=== PATIENT | male | born 1935 | race Caucasian/White ===

== ENCOUNTER 2017-08-25 18:59 | Inpatient (IN) | payer OTHER, BC ==
[2017-08-25 19:16] VITALS: BMI 24.3
--- NOTE | 2017-08-25 19:20 | PDOC ---
Attending Attestation - HPI HPI: 08/25/17 20:29 82 year old male, with significant PMH of Diverticulosis, HTN, HLD, GERD, and Gout, who was sent into the emergency room by Dr. Beaver complaining of rectal bleeding x4 days. The patient states that he notices bright red blood on the top of his brown colored stool and on the toilet paper. Denies dark, tarry stool. He states that he has had a diverticular bleed in the past that required a 2 pint blood transfusion. Denies abdominal pain. Denies fever, chills, nausea , vomiting. - Physicial Exam PE: 08/25/17 20:29 Constitutional: Awake, alert, oriented. No acute distress. Head: Normocephalic. Atraumatic Eyes: PERRL. EOMI. Conjunctivae are not pale. ENT: Mucous membranes are moist and intact. Posterior pharynx without exudates or erythema. Uvula midline. Neck: Supple. Full ROM. No lymphadenopathy. Cardiovascular: Regular rate. Regular rhythm. S1, S2 regular. Distal pulses are 2+ and symmetric. Pulmonary/Chest: No evidence of respiratory distress. Clear to auscultation bilaterally No wheezing, rales or rhonchi. Abdominal: Soft and non-distended. There is no tenderness. No rebound, guarding or rigidity. No organomegaly. No palpable masses. Good bowel sounds. Back: No CVA tenderness. Musculoskeletal: No edema. No cyanosis. No clubbing. Full range of motion in all extremities. Nocalf tenderness. Radial/pedal pulses are intact and 2+ bilaterally Skin: Skin is warm and dry. No petechiae. No purpura. Neurological: Alert and oriented to person, place, and time. Cranial nerves II -XII are grossly intact. Normal speech. Strength is grossly symmetric. No sensory deficits. Psychiatric: Good eye contact. Normal interaction, affect and behavior. - Medical Decision Making 08/25/17 21:55 Dr. Beaver was paged at 9:55pm. <Carolina Brooks - Last Filed: 08/25/17 21:54> - Resident Resident Name: Víctor Devlin - ED Attending Attestation I have performed the following: I have examined & evaluated the patient, The case was reviewed & discussed with the resident, I agree w/resident's findings & plan, Exceptions are as noted - Medical Decision Making 08/25/17 19:20 I, Dr. Beckie Olivera, DO, attest that this document has been prepared under my direction and personally reviewed by me in its entirety. I further attest, that it accurately reflects all work, treatment, procedures and medical decision -making performed by me. 08/25/17 19:48 a/p: 82yo male with 3 day hx of BRBPR -hx of diverticulosis on prior colonoscopy -hx of UGIB -no blood thinners -most likely diverticular bleed -no abd pain -labs, type and screen (hx of requiring blood transfusion in the past), ekg, cxr -pt will be admitted by Dr. Mueller (had rectal exam by Dr. Mueller earlier today) 08/25/17 20:28 sinus tach at 111, 1st degree av block, low voltage EKG, no acute st/t wave findings, 08/25/17 21:53 hgb 11. call placed to Dr. Beaver. Pt will need repeat h/h and monitoring. 08/25/17 21:[address] Beaver - requests consult to Dr. Richter and admission under Dr. Mueller. Discussed labs. Pt stable at this time. 08/25/17 21:57 <Beckie Olivera - Last Filed: 08/25/17 21:57> Discharge Disposition <Carolina Brooks - Last Filed: 08/25/17 21:54> - Discharge Dispostion Admit: Yes <Beckie Olivera - Last Filed: 08/25/17 21:57> - Diagnosis GIB (gastrointestinal bleeding) - Discharge Dispostion Condition at time of disposition: Fair - Referrals Referrals: Mazin Beaver MD [Primary Care Provider] - - Patient Instructions - Post Discharge Activity
--- NOTE | 2017-08-25 19:38 | PDOC ---
History of Present Illness - General Chief Complaint: Bleeding from Anus Stated Complaint: RECTAL BLEEDING Time Seen by Provider: 08/25/17 19:15 - History of Present Illness Initial Comments: 08/25/17 20:03 The patient is an 82 year old male with a history of HTN, HLD, GERD, Gout, Diverticulosis who presents for evaluation from his PCP for rectal bleeding. The patient reports a 4-5 day history of bright red blood per rectum prompting him to present to his PCP. The patient reports that he has had diverticular bleeds in the past once requiring transfusion. His primary Dr. Beaver sent him to the ER for admission given his PMH and a positive stool guiac in the office. The patient denies any abdominal pain or dark tarry stools and only noted bright red blood on the outside of his stools and with wiping. He denies fevers , chills, SOB, chest pain, or changes with urination. He denies any pain with defecation as well. Past History - Past Medical History Allergies/Adverse Reactions: Allergies Allergy/AdvReac Type Severity Reaction Status Date / Time shellfish derived Allergy Verified 08/25/17 19:18 Home Medications: Ambulatory Orders Allopurinol 300 mg PO DAILY 08/26/17 Amlodipine Besylate 5 mg PO DAILY 08/26/17 Azelastine HCl 137 mcg NS DAILY 08/26/17 Dicyclomine HCl 10 mg PO DAILY 08/26/17 Loratadine 10 mg PO DAILY 08/26/17 Losartan Potassium 50 mg PO DAILY 08/26/17 Omeprazole 20 mg PO DAILY 08/26/17 COPD: No GI Disorders: Yes (GERD) HTN: Yes Other medical history: GOUT - Surgical History Abdominal Surgery: Yes (BILAT ING.HERNIA) - Suicide/Smoking/Psychosocial Hx Smoking History: Former smoker Have you smoked in the past 12 months: No Information on smoking cessation initiated: Yes Hx Alcohol Use: No Drug/Substance Use Hx: No Substance Use Type: None Review of Systems - Review of Systems Comments:: 08/25/17 20:10 Constitutional: No fevers, chills, fatigue, malaise HEENT: No Rhinorrhea, nasal congestion, Cardiovascular: No chest pain, syncope, palpitations, lightheadedness Respiratory: No Cough, SOB, Hemoptysis, Gastrointestinal: Bright red blood per rectum. No Abdominal pain, Nausea, Vomiting, Constipation, Diarrhea, Melena Genitourinary: No Dysuria, Frequency, Urgency, Hesitancy, Hematuria, Flank pain Musculoskeletal: No Myalgia, arthralgia Skin: No rashes, itching, bruising, pallor Neurologic: No Headache, Dizziness, Numbness, Weakness, or Tingling Psychiatric: No Hallucinations. No SI or HI *Physical Exam - Vital Signs Last Vital Signs Temp Pulse Resp BP Pulse Ox 99.3 F 115 H 18 135/62 100 08/25/17 19:06 08/25/17 19:06 08/25/17 19:06 08/25/17 19:06 08/25/17 19:06 - Physical Exam Comments: 08/25/17 20:11 General Appearance: Nourished. No Apparent Distress HEENT: EOMI, MEENU. Neck: No Cervical Lymphadenopathy Respiratory/Chest: Lungs Clear, Normal Breath Sounds. No Crackles, Rales, Rhonchi, Wheezing Cardiovascular: Regular Rhythm, Regular Rate. No JVD, Murmur, Gallops, Rubs Gastrointestinal/Abdominal: Normal Bowel Sounds, Soft. No Guarding, Rebound, Tenderness Musculoskeletal: No CVA Tenderness Extremity: Normal Capillary Refill Integumentary: Normal Color, Dry, Warm Neurologic: Fully Oriented, Alert, Normal Mood/Affect, Normal Response, ED Treatment Course - LABORATORY CBC & Chemistry Diagram: 08/25/17 21:00 08/25/17 21:00 Medical Decision Making - Medical Decision Making 08/25/17 20:12 The patient is an 82 year old male with a history of HTN, HLD, GERD, Gout, Diverticulosis who presents for evaluation from his PCP for rectal bleeding. Differential includes but is not limited to: Diverticular bleed, internal hemorrhoids, upper GI bleed, infectious, metabolic derangement. Given the patient's history of a diverticular bleed, it is likely the patient's symptoms are due to a diverticular bleed. The patient does not describe symptoms of a upper GI bleeding including denying melena. The patient appears clinically well on exam with a normal physical exam, however given his history of requiring transfusion in the past, he will require admission for further management. We will obtain a cbc, cmp, coags, lactate, type and screen, EKG, chest plain film to evaluate further. We will continue to monitor and reassess. 08/25/17 21:39 We discussed the case with Dr. Beaver who accepted the patient for admission. *DC/Admit/Observation/Transfer Diagnosis at time of Disposition: GIB (gastrointestinal bleeding) Qualifiers: GI bleed type/associated pathology: unspecified gastrointestinal hemorrhage type Qualified Code(s): K92.2 - Gastrointestinal hemorrhage, unspecified - Discharge Dispostion Condition at time of disposition: Fair - Referrals - Patient Instructions - Post Discharge Activity
[2017-08-25 21:10] LABS: BASOPHIL 0.8 % (0-2.0); EOSINOPHIL 1.4 % (0-4.5); MCHC 34.6 g/dl (32.0-35.9); MEAN CELL VOLUME 86.7 fl (80-96); MEAN PLT VOLUME 8.8 fl (7.5-11.1); PLATELET COUNT 242 K/MM3 (134-434); RDW 16.4 % (11.9-15.9); WHITE BLOOD COUNT 8.6 K/mm3 (4.0-10.0)
[2017-08-25 21:46] LABS: URINE APPEARANCE CLEAR; URINE BILIRUBIN NEGATIVE (NEGATIVE); URINE BLOOD NEGATIVE (NEGATIVE); URINE COLOR LTYELLOW; URINE GLUCOSE (UA) NEGATIVE (NEGATIVE); URINE KETONE NEGATIVE (NEGATIVE); URINE NITRITE NEGATIVE (NEGATIVE); URINE PROTEIN NEGATIVE (NEGATIVE); URINE UROBILINOGEN NEGATIVE mg/dL (0.2-1.0)
[2017-08-25 21:58] LABS: INR 1.22 (0.82-1.09); PROTHROMBIN TIME (PATIENT) 13.8 SEC (9.98-11.88)
[2017-08-25 22:01] LABS: ACTIVATED PTT 29.6 SECONDS (26.9-34.4)
[2017-08-25 22:02] LABS: ALBUMIN 4.2 g/dl (3.4-5.0); ALK PHOS 66 U/L (45-117); ANION GAP 9 (8-16); BILIRUBIN,TOTAL 0.6 mg/dL (0.2-1.0); CALCIUM 9.1 mg/dL (8.5-10.1); CO2 28 mmol/L (21-32); CREATININE 2.1 mg/dL (0.7-1.3); GLUCOSE,RANDOM 185 mg/dL (74-106); SGOT/AST 29 U/L (15-37); SGPT/ALT 44 U/L (12-78); TOT PROT 7.8 g/dl (6.4-8.2)
[2017-08-25 22:57] LABS: URINE LEUK ESTERASE Negative (NEGATIVE)
--- NOTE | 2017-08-26 09:24 | HP ---
DATE OF ADMISSION: 08/25/2017 HISTORY OF PRESENT ILLNESS: An 82-year-old male known to me for some time, diagnosed to have hypertension, diabetes, gout, history of diverticular bleeding in the past, came to my office yesterday with complaints of rectal bleeding bright red over the last 4-5 days. In the office, rectal examination showed marianela blood, so he was brought to the emergency room here and was admitted. He denies any further bleeding. In the emergency room, his hemoglobin was 11.9. SOCIAL HISTORY: Patient lives alone. He is not a smoker. No alcohol abuse. He is retired from . PHYSICAL EXAMINATION: Vital Signs: Today, BP 140/78, pulse 77, respirations 20, temperature 98. HEENT: Unremarkable. Mouth: No teeth. Throat is clear. Neck: Supple. No JVD. Lungs: Clear. Heart: S1 and S2 normal. No S3 or S4. Abdomen: Soft. No tenderness. Rectal: Marianela blood noted. Extremities: No edema. Neurological: No evidence of any deficits. LABORATORY REPORTS: WBC 8.6, hemoglobin 11.9, platelets 242. Chemistry: Sodium 136, potassium 3.6, BUN 40, creatinine 2.1, and blood sugar 185. Lipase 143. Urine is negative. Chest x-ray: Negative. IMPRESSION: 1. Rectal bleeding. 2. Hypertension. 3. Diabetes. 4. Renal insufficiency. PLAN: Keep n.p.o., IV fluids, GI consult. We will hold his medications at this time. [email or web address] [id number]
[2017-08-26] MEDS: POTASSIUM CHLORIDE 10 MEQ in SODIUM CHLORIDE 0.45% 1,000 ML IVPB SCH ×2 (10:45→21:43)
--- NOTE | 2017-08-26 10:56 | CON.GI ---
Consult Consult Specialty:: GI: Dr. Rojas covering for Dr. Richter Referred by:: Dr. Beaver Reason for Consultation:: Rectal bleeding - History of Present Illness Chief Complaint: I was bleeding from my rectum History of Present Illness: 82M admitted through [facility] for evaluation of rectal bleeding. Mr. Manriquez is somewhat of a poor historian regarding his history at times. he does tell me that starting last wednesday he has had intermittent rectal bleeding. He described it as both bright red in the beginning and dark red at times. He described it as occurring both with and without bowel movements as well and did not recall any passage of clots. he denies any associated abdominal pain, nausea, vomiting. he denies any oral NSAID use however he has been using voltaren cream for knee pain. He alludes to having three colonoscopies in his life. The first being multiple years prior, the second being 3-4 years ago and the most recent being this past february. The initial two may have been performed at [facility] while the most recent he believes was performed at [facility]. He describes "precancerous polyps" being found during his second colonoscopy and remembers being told of diverticulosis. He also believesn that the second colonoscopy was performed due to "a similar situation as now" where there was rectal bleeding. He recalls being told that his colon "looked a bit off with red spots" and that the Said "he may have had a burst blood vessel". He thinks hemorrhoids may have been described as well. There is no family history of colorectal cancer or other GI malignancy. He alludes to drinking alcohol heavily in the past and did have wine this past weekend. Currently, there has been no overt bleeding. His previous PMD was ? affiliated with [facility], has retired and Mr. Manriquez is new to the [facility] system. - History Source History Provided By: Patient, Medical Record - Past Medical History Cardio/Vascular: Yes: HTN Gastrointestinal: Yes: Diverticulosis, Other (colon polyps) Rheumatology: Yes: Gout ENT: Yes: Other (glaucoma) - Past Surgical History Additional Surgical History: Left knee surgery, right knee surgery x 2, b/l inguinal hernia repair - Alcohol/Substance Use Hx Alcohol Use: Yes History of Substance Use: reports: None - Smoking History Smoking history: Former smoker Have you smoked in the past 12 months: No - Social History Usual Living Arrangement: Alone () ADL: Independent Occupation: Retired Teacher Place of : [employer] Home Medications - Allergies Allergies/Adverse Reactions: Allergies Allergy/AdvReac Type Severity Reaction Status Date / Time shellfish derived Allergy Verified 08/25/17 19:18 - Home Medications Home Medications: Ambulatory Orders Allopurinol 300 mg PO DAILY 08/26/17 Amlodipine Besylate 5 mg PO DAILY 08/26/17 Azelastine HCl 137 mcg NS DAILY 08/26/17 Dicyclomine HCl 10 mg PO DAILY 08/26/17 Loratadine 10 mg PO DAILY 08/26/17 Losartan Potassium 50 mg PO DAILY 08/26/17 Omeprazole 20 mg PO DAILY 08/26/17 Family Disease History - Family Disease History Family Disease History: Heart Disease: Mother (: 72: [place]), Other: Father ( : 79 ? [place] Mother, Brother (: down syndrome) Other Family History: No children. No family history of colorectal cancer / GI malignancy Review of Systems - Review of Systems Constitutional: denies: Fever, Unintentional Wgt. Loss Cardiovascular: denies: Chest Pain Respiratory: denies: Cough, SOB Gastrointestinal: reports: Constipation (occasional), Rectal Bleeding. denies: Abdominal Pain, Bloating, Melena, Vomiting Blood Physical Exam-GI Vital Signs: Vital Signs Temperature 98.1 F 08/26/17 1030 Pulse Rate 115 08/26/17 1030 Respiratory Rate 19 08/26/17 1030 Blood Pressure 124/74 08/26/17 1030 O2 Sat by Pulse Oximetry (%) 100 08/26/17 1030 Constitutional: Yes: Calm Eyes: No: Sclera Icterus Cardiovascular: Yes: Tachycardia. No: Murmur Respiratory: Yes: CTA Bilaterally Gastrointestinal Inspection: Yes: Scars (b/i inguinal hernia repair scars) ...Auscultate: Yes: Normoactive Bowel Sounds ...Palpate: No: Hepatomegaly, Splenomegaly, Tenderness ...Percussion: No: Tympanitic ...Rectal Exam: Yes: Other (No external lesions, no masses, brown stool mixed with dark blood) Extremities: Yes: Other (scars b/l knees) Edema: No Neurological: Yes: Alert, Oriented Labs: CBC, BMP 08/25/17 21:00 08/25/17 21:00 INR, PTT INR 1.22 (0.82-1.09) H 08/25/17 21:00 Problem List - Problems (1) Rectal bleeding Assessment/Plan: Painless hematochezia: Patient currently hemodynamically stable without overt bleeding. He was tachycardic on my exam. ? if colume depletion contributing to this and Mr. Manriquez describes episodes of a fast heart rate at times. His fluids are being adjusted by Dr. Beaver. ? if his renal insufficiency is baseline given his personal history or new. While he has had previous colonoscopies he is a bit vague about the findings at times. he also explained that his previous PMD has retired, Dr. Beaver does not have previous records of the colonoscopy and he does not recall the name of the technical designer performing his most recent colonoscopy. I have therefore proposed a repeat colonoscopy at this time to exclude alternate etiologies aside from hemorrhoidal / diverticular source. We discussed potential riss of the procedure like but not limited to bleeding, perforation requiring surgery to repair, infection, sedation medication effects all of which could be potentially life threatening. He has agreed to the procedure. For now: IV hydration per PMD Clear liquid diet Evaluation of renal insufficiency per PMD. Consider renal evaluation. Unclear if chronic Colonoscopy 08/27 Ordered Repeat CBC for today If noted persistent ongoing bleeding / change in hemodynamics, transfer to ICU setting Code(s): K62.5 - HEMORRHAGE OF ANUS AND RECTUM
[2017-08-26 11:20] LABS: MCHC 32.9 g/dl (32.0-35.9); MEAN CELL VOLUME 88.1 fl (80-96); MEAN PLT VOLUME 8.6 fl (7.5-11.1); PLATELET COUNT 236 K/MM3 (134-434); RDW 16.3 % (11.9-15.9); WHITE BLOOD COUNT 6.8 K/mm3 (4.0-10.0)
[2017-08-26] MEDS ORDERED: BISACODYL 5 MG TABLET.DR (FP) PO ONE (15:00)
[2017-08-26] MEDS ORDERED: PEG3350/SOD SULF,BICARB,CL/KCL 4,000 ML SOLN.RECON PO ONE (16:00)
--- NOTE | 2017-08-26 16:34 | EKG ---
Test Reason : Blood Pressure : / mmHG Vent. Rate : 111 BPM Atrial Rate : 111 BPM P-R Int : 222 ms QRS Dur : 082 ms QT Int : 312 ms P-R-T Axes : 045 -01 055 degrees QTc Int : 424 ms SINUS TACHYCARDIA WITH 1ST DEGREE A-V BLOCK OTHERWISE NORMAL ECG NO PREVIOUS ECGS AVAILABLE Confirmed by YAJAIRA VALLES, TAYLOR ([id number]) on 08/26/2017 4:33:57 PM Referred By: Confirmed By:TAYLOR GATES MD
[2017-08-27 07:44] LABS: EOSINOPHIL 2.5 % (0-4.5); MCH 29.4 pg (25.7-33.7); MCHC 33.6 g/dl (32.0-35.9); MEAN CELL VOLUME 87.4 fl (80-96); MEAN PLT VOLUME 8.6 fl (7.5-11.1); PLATELET COUNT 208 K/MM3 (134-434); RDW 16.2 % (11.9-15.9); WHITE BLOOD COUNT 6.6 K/mm3 (4.0-10.0)
[2017-08-27 08:52] LABS: ALBUMIN 3.7 g/dl (3.4-5.0); ALK PHOS 59 U/L (45-117); ANION GAP 9 (8-16); BILIRUBIN,DIRECT 0.2 mg/dL (0.0-0.2); BILIRUBIN,TOTAL 0.6 mg/dL (0.2-1.0); BILIRUBIN,TOTAL 0.8 mg/dL (0.2-1.0); CALCIUM 7.8 mg/dL (8.5-10.1); CO2 30 mmol/L (21-32); CREATININE 1.3 mg/dL (0.7-1.3); GLUCOSE,RANDOM 146 mg/dL (74-106); SGOT/AST 22 U/L (15-37); SGPT/ALT 34 U/L (12-78); TOT PROT 6.4 g/dl (6.4-8.2); TOT PROT 6.5 g/dl (6.4-8.2)
--- NOTE | 2017-08-27 08:59 | PN ---
Progress Note, Physician Chief Complaint: Still C/O rectal bleeding History of Present Illness: Dr Desai,alisia GI consult appriciated Scheduled for colonoscopy this AM Hb is down to 10.4 - Current Medication List Current Medications: Active Medications Potassium Chloride 10 meq/ (Sodium Chloride) 1,005 mls @ 83 mls/hr IVPB Q12H YVON Last Admin: 08/26/17 21:43 Dose: 83 mls/hr - Objective Vital Signs: Vital Signs Temperature 97.6 F 08/27/17 06:47 Pulse Rate 79 08/27/17 06:47 Respiratory Rate 20 08/27/17 06:47 Blood Pressure 135/72 08/27/17 06:47 O2 Sat by Pulse Oximetry (%) 100 08/26/17 21:00 Constitutional: Yes: Mild Distress Eyes: Yes: WNL HENT: Yes: WNL Neck: Yes: WNL, Tenderness Respiratory: Yes: WNL Gastrointestinal: Yes: WNL, Normal Bowel Sounds, Rectal Bleeding Genitourinary: Yes: WNL Musculoskeletal: Yes: WNL Extremities: Yes: WNL Edema: No Peripheral Pulses WNL: Yes Neurological: Yes: Alert Psychiatric: Yes: Alert Labs: CBC, BMP 08/27/17 06:00 INR, PTT INR 1.22 (0.82-1.09) H 08/25/17 21:00 Assessment/Plan Colonoscopy this AM
--- NOTE | 2017-08-27 13:21 | PN ---
Progress Note (short form) - Note Progress Note: GI Procedure NOte: Please see colonoscopy report. Bleeding was emanating form two cecal angiodysplasia that were ablated with APC and then endoclipped. Eight small polyp were removed. Severe universal diverticulosis was found. A role for diverticular bleeding cannot be excluded. Will observe on full liquids. Findings were discussed with
[2017-08-27] MEDS: POTASSIUM CHLORIDE 10 MEQ in SODIUM CHLORIDE 0.45% 1,000 ML IVPB SCH ×2 (14:02→20:49)
[2017-08-27] MEDS: PHYTONADIONE 10 MG/1 ML AMP IM SCH (16:11)
[2017-08-28 07:55] LABS: BASOPHIL 0.6 % (0-2.0); EOSINOPHIL 2.8 % (0-4.5); MCH 29.5 pg (25.7-33.7); MCHC 33.2 g/dl (32.0-35.9); MEAN CELL VOLUME 88.8 fl (80-96); MEAN PLT VOLUME 8.8 fl (7.5-11.1); NEUTROPHILS 71.1 % (42.8-82.8); PLATELET COUNT 190 K/MM3 (134-434); RDW 16.2 % (11.9-15.9); WHITE BLOOD COUNT 6.8 K/mm3 (4.0-10.0)
[2017-08-28 08:07] LABS: INR 1.27 (0.82-1.09); PROTHROMBIN TIME (PATIENT) 14.4 SEC (9.98-11.88)
--- NOTE | 2017-08-28 08:36 | PN ---
Progress Note, Physician Chief Complaint: Feels better History of Present Illness: S/P colonoscopy Cauterized the bleeding AV areas 7 Polyps removed - Current Medication List Current Medications: Active Medications Potassium Chloride 10 meq/ (Sodium Chloride) 1,005 mls @ 83 mls/hr IVPB Q12H [facility] Last Admin: 08/27/17 20:49 Dose: Not Given Phytonadione (Aqua Mephyton Injection -) 10 mg IM DAILY YVON Stop: 08/29/17 10:01 Last Admin: 08/27/17 16:11 Dose: 10 mg - Objective Vital Signs: Vital Signs Temperature 98.2 F 08/28/17 06:00 Pulse Rate 89 08/28/17 06:00 Respiratory Rate 18 08/28/17 06:00 Blood Pressure 147/69 08/28/17 06:00 O2 Sat by Pulse Oximetry (%) 98 08/27/17 21:00 Constitutional: Yes: No Distress Eyes: Yes: WNL HENT: Yes: WNL Neck: Yes: WNL Cardiovascular: Yes: WNL Respiratory: Yes: WNL Gastrointestinal: Yes: Normal Bowel Sounds, Soft ...Rectal Exam: Yes: Deferred Labs: CBC, BMP 08/28/17 06:00 INR, PTT INR 1.27 (0.82-1.09) H 08/28/17 06:00 Assessment/Plan Colonoscopy this AM 2016 Advance diet
[2017-08-28 08:48] LABS: ALBUMIN 3.3 g/dl (3.4-5.0); ALK PHOS 56 U/L (45-117); ANION GAP 10 (8-16); BILIRUBIN,TOTAL 0.7 mg/dL (0.2-1.0); CALCIUM 7.8 mg/dL (8.5-10.1); CO2 27 mmol/L (21-32); GLUCOSE,RANDOM 135 mg/dL (74-106); SGOT/AST 16 U/L (15-37); SGPT/ALT 26 U/L (12-78)
[2017-08-28] MEDS: PHYTONADIONE 10 MG/1 ML AMP IM SCH (09:36)
[2017-08-28] MEDS: POTASSIUM CHLORIDE 10 MEQ in SODIUM CHLORIDE 0.45% 1,000 ML IVPB SCH (13:22)
--- NOTE | 2017-08-28 14:34 | PN ---
GI Progress Note Subjective: GI Note: No further bleeding. NO pain - Objective Vital Signs: Vital Signs Temperature 98.3 F 08/28/17 10:03 Pulse Rate 81 08/28/17 10:03 Respiratory Rate 18 08/28/17 10:03 Blood Pressure 133/61 08/28/17 10:03 O2 Sat by Pulse Oximetry (%) 98 08/28/17 09:00 Laboratory Tests 08/27/17 08/28/17 06:00 06:00 Hgb 10.4 L D 10.1 L Constitutional: Calm ...Auscultate: Yes: Normoactive Bowel Sounds ...Palpate: Yes: Soft, Other (nontender) Labs: CBC, BMP 08/28/17 06:00 08/28/17 06:00 INR, PTT INR 1.27 (0.82-1.09) H 08/28/17 06:00 Problem List - Problems (1) Angiodysplasia of cecum Assessment/Plan: Resolved cecal angiodysplasia bleeding following cauterization and endoclipping. Having trouble chewing so will switch to chopped diet. If no further bleeding I have no objections to discharge tomorrow. Code(s): K55.20 - ANGIODYSPLASIA OF COLON WITHOUT HEMORRHAGE (2) GIB (gastrointestinal bleeding) Code(s): K92.2 - GASTROINTESTINAL HEMORRHAGE, UNSPECIFIED Qualifiers: GI bleed type/associated pathology: unspecified gastrointestinal hemorrhage type Qualified Code(s): K92.2 - Gastrointestinal hemorrhage, unspecified
[2017-08-29] MEDS: PHYTONADIONE 10 MG/1 ML AMP IM SCH (10:22)
--- NOTE | 2017-08-29 11:48 | PN ---
GI Progress Note Subjective: GI NOte: No overt bleeding, in fact no BM yet. Tolerating solid diet. No pain. Did not have blood drawn yet. - Objective Vital Signs: Vital Signs Temperature 98 F 08/29/17 10:00 Pulse Rate 84 08/29/17 10:00 Respiratory Rate 18 08/29/17 10:00 Blood Pressure 149/69 08/29/17 10:00 O2 Sat by Pulse Oximetry (%) 98 08/29/17 09:00 Constitutional: Calm ...Auscultate: Yes: Normoactive Bowel Sounds ...Palpate: Yes: Soft, Other (nontender) Labs: CBC, BMP 08/28/17 06:00 08/28/17 06:00 INR, PTT INR 1.27 (0.82-1.09) H 08/28/17 06:00 Problem List - Problems (1) Angiodysplasia of cecum Assessment/Plan: Resolved cecal angiodysplasia bleeding following cauterization and endoclipping. If no further bleeding I have no objections to discharge. Will order repeat CBC. (2) GIB (gastrointestinal bleeding) Assessment/Plan: Due to cecal angiodysplasias Code(s): K92.2 - GASTROINTESTINAL HEMORRHAGE, UNSPECIFIED Qualifiers: GI bleed type/associated pathology: unspecified gastrointestinal hemorrhage type Qualified Code(s): K92.2 - Gastrointestinal hemorrhage, unspecified
[2017-08-29 16:19] LABS: MCH 29.7 pg (25.7-33.7); MCHC 33.8 g/dl (32.0-35.9); MEAN PLT VOLUME 8.6 fl (7.5-11.1); PLATELET COUNT 224 K/MM3 (134-434); RDW 16.5 % (11.9-15.9); WHITE BLOOD COUNT 8.3 K/mm3 (4.0-10.0)
[2017-08-30 06:54] VITALS: BP 148/76; PULSE 81; TEMP 98.6
[2017-08-30 08:06] LABS: BASOPHIL 0.9 % (0-2.0); EOSINOPHIL 3.4 % (0-4.5); MCH 29.1 pg (25.7-33.7); MCHC 32.8 g/dl (32.0-35.9); MEAN CELL VOLUME 88.8 fl (80-96); MEAN PLT VOLUME 8.3 fl (7.5-11.1); NEUTROPHILS 70.4 % (42.8-82.8); PLATELET COUNT 225 K/MM3 (134-434); RDW 16.5 % (11.9-15.9); WHITE BLOOD COUNT 8.1 K/mm3 (4.0-10.0)
[2017-08-30 08:24] LABS: ANION GAP 7 (8-16); CALCIUM 8.6 mg/dL (8.5-10.1); CO2 29 mmol/L (21-32); CREATININE 1.2 mg/dL (0.7-1.3); GLUCOSE,RANDOM 160 mg/dL (74-106)
--- NOTE | 2017-08-30 08:29 | DS ---
Physical Examination Vital Signs: Vital Signs Temperature 98.6 F 08/30/17 06:00 Pulse Rate 81 08/30/17 06:00 Respiratory Rate 20 08/30/17 06:00 Blood Pressure 148/76 08/30/17 06:00 O2 Sat by Pulse Oximetry (%) 98 08/29/17 09:00 Findings/Remarks: Admitted with rectal bleeding AV malformation bleeding site cauterized ,bleeding stopped Constitutional: Yes: No Distress Eyes: Yes: WNL HENT: Yes: WNL Neck: Yes: WNL Cardiovascular: Yes: WNL Respiratory: Yes: WNL Gastrointestinal: Yes: Normal Bowel Sounds ...Rectal Exam: Yes: Deferred Renal/: Yes: WNL Musculoskeletal: Yes: WNL Extremities: Yes: WNL Edema: No Peripheral Pulses WNL: Yes Neurological: Yes: Alert ...Motor Strength: WNL Psychiatric: Yes: WNL Labs: CBC, BMP 08/30/17 06:35 Discharge Summary Reason For Visit: GASTROINTESTINAL HEMORRHAGE Current Active Problems Angiodysplasia of cecum (Acute) GIB (gastrointestinal bleeding) (Acute) Rectal bleeding (Acute) Condition: Fair - Instructions Referrals: Mazin Beaver MD [Primary Care Provider] - - Home Medications Comprehensive Discharge Medication List: Ambulatory Orders Allopurinol 300 mg PO DAILY 08/26/17 Amlodipine Besylate 5 mg PO DAILY 08/26/17 Azelastine HCl 137 mcg NS DAILY 08/26/17 Dicyclomine HCl 10 mg PO DAILY 08/26/17 Loratadine 10 mg PO DAILY 08/26/17 Losartan Potassium 50 mg PO DAILY 08/26/17 Omeprazole 20 mg PO DAILY 08/26/17
[2017-08-30 08:30] LABS: FERRITIN 60.552 ng/ml (16.4-293.9)
--- NOTE | 2017-08-30 17:09 | PATH ---
Surgical Pathology Report Patient Name: YI HASKINS [facility]. Rec. #: [id number] /Age/Gender: 1935 (Age: 82) / M Account: [id number] Location: [facility] MED/SURG Taken: 08/27/2017 Received: 08/27/2017 Reported: 08/30/2017 Physicians: Figueroa Richter M.D. Specimen(s) Received A: RECTAL POLYP B: BX DESCENDING COLON C: BX TRANSVERSE COLON D: BX CECAL E: POLYP SIGMOID Clinical History Rectal bleeding Colon polyps, diverticulosis, bleeding cecal angiodysplasia Final Diagnosis A. RECTUM, POLYP, BIOPSY: HYPERPLASTIC POLYP. B. DESCENDING COLON, POLYP, BIOPSY: TUBULAR ADENOMA. C. TRANSVERSE COLON, POLYP, BIOPSY: TUBULAR ADENOMA(S) D. CECUM, POLYP, BIOPSY: TUBULAR ADENOMA(S) E. SIGMOID, POLYP, BIOPSY: HYPERPLASTIC POLYP. Electronically Signed Crista Jones M.D. Gross Description A. Received in formalin, labeled "polyp rectum" is a tamayo, irregular portion of soft tissue measuring 0.2 cm. in greatest dimension. The specimen is submitted in toto in one cassette. B. Received in formalin, labeled "descending colon polyp" are 3 tamayo, irregular portions of soft tissue averaging 0.2 cm. in greatest dimension. The specimens are submitted in toto in one cassette. C. Received in formalin, labeled "transverse colon polyp" are 4 tamayo, irregular portions of soft tissue ranging from 0.2-0.4 cm. in greatest dimension. The specimens are submitted in toto in one cassette. D. Received in formalin, labeled "polyp cecum" are 4 tamayo, irregular portions of soft tissue ranging from 0.1-0.4 cm. in greatest dimension. The specimens are submitted in toto in one cassette. E. Received in formalin, labeled "sigmoid polyp" is a tamayo, irregular portion of soft tissue measuring 0.5 cm. in greatest dimension. The specimen is submitted in toto in one cassette. 08/27/201708/27/2017
[2017-08-31 06:06] LABS: SERUM IRON 48 ug/dL (38-169); TOTAL IRON BINDING CAPACITY 297 ug/dL (250-450); UIBC 249 ug/dL (111-343)
== END 2017-08-30 10:51 | disposition home or self-care (01) | DRG 379 ==
LOC: JER 18:59 → JERBED 21:56 → J8W 08-26 05:08
PROVIDERS: ADMIT Internal Medicine; ATTEND Internal Medicine
PROC: 0W3P8ZZ Control Bleeding in Gastrointestinal Tract, Via Natural or Artificial Opening Endoscopic (ICD-10-PCS; principal; 2017-08-25)
PROC: 0DBK8ZX Excision of Ascending Colon, Via Natural or Artificial Opening Endoscopic, Diagnostic (ICD-10-PCS; 2017-08-25)
PROC: 0DBL8ZX Excision of Transverse Colon, Via Natural or Artificial Opening Endoscopic, Diagnostic (ICD-10-PCS; 2017-08-25)
PROC: 0DBM8ZX Excision of Descending Colon, Via Natural or Artificial Opening Endoscopic, Diagnostic (ICD-10-PCS; 2017-08-25)
PROC: 0DBH8ZX Excision of Cecum, Via Natural or Artificial Opening Endoscopic, Diagnostic (ICD-10-PCS; 2017-08-25)
PROC: 0DBP8ZX Excision of Rectum, Via Natural or Artificial Opening Endoscopic, Diagnostic (ICD-10-PCS; 2017-08-25)
DX: K55.21 Angiodysplasia of colon with hemorrhage (principal); K57.30 Diverticulosis of large intestine without perforation or abscess without bleeding; I44.0 Atrioventricular block, first degree; R00.0 Tachycardia, unspecified; I10 Essential (primary) hypertension; E78.5 Hyperlipidemia, unspecified; M10.9 Gout, unspecified; Z87.891 Personal history of nicotine dependence; K21.9 Gastro-esophageal reflux disease without esophagitis; D12.0 Benign neoplasm of cecum; D12.4 Benign neoplasm of descending colon; D12.3 Benign neoplasm of transverse colon; D12.8 Benign neoplasm of rectum; K64.8 Other hemorrhoids
CPT/HCPCS: 36415; 71010-TC; 80048; 80053; 80076; 81003; 82728; 83540; 83550; 83605; 83690; 83735; 85025; 85027; 85044; 85610; 85730; 86850; 86900; 86901; 88305-TC; 93005; 93010; 99281-25